=== PATIENT | female | born 1980 | race Caucasian/White ===

== ENCOUNTER 2016-08-01 09:42 | Emergency (ER) | payer OTHER ==
[~2016-08-01] VITALS: Ht 160 cm; Wt 61.9 kg
[~2016-08-01 09:42] MED LIST: CLON1TAB3 PO; INSUINJ12 SC; INSUINJ14 SC; TRAM-10 PO
[2016-08-01 09:45] VITALS: BP 110/73; PULSE 86; TEMP 36.7; O2SAT 98; Ht 160 cm; Wt 61.9 kg
[2016-08-01] MEDS ORDERED: SODIUM CHLORIDE 0.9% 1000ML 1,000 ML IV SCH (10:00)
[2016-08-01] MEDS ORDERED: ONDANSETRON INJ 2 MG/ML 2 ML VIAL IV STA (10:00)
--- NOTE | 2016-08-01 10:28 | EMERGENCY ROOM VISIT NOTE ---
ED Visit Note First contact with patient: 09:49 This patient was seen by the resident but signed out AMA prior to the residents complete evaluation. Please see his note for information. I did not see the patient as she was not willing to wait to be seen and refused any blood work other than her initial BSG that was better than her one at home.
--- NOTE | 2016-08-01 10:48 | EMERGENCY ROOM VISIT NOTE ---
History First contact with patient: 09:49 Chief Complaint: HYPERGLYCEMIA Stated Complaint: HIGH SUGAR Nursing Triage Summary: Murray denies recent use of steroids, stated last meal was at 2100 last evening. Morning BSG typically around 200. Patient woke up in the middle of the night, patient checked BSG in middle of night and stated it was 591. Patient states "My stomach is upset." History of Present Illness The patient is a 36 year old female who presents to the Emergency Room with complaints of elevated BSG. She woke up this morning feeling unwell. Check her BSG it was 590. She took 30 units of Levemir and 10 units of Novolog. She called her mother to bring her in to the hospital. Mother feels that Jena sounded confused on the phone. Patient currently complains of mild abdominal pain and nausea without vomiting. She denies diarrhea or constipation. No fevers, chills or nightsweats. She denies urinary symptoms. No respiratory symptoms. Patient denies any recent illness or medication changes. She has not been on any steroids recently. She just moved back to [place] from [place]. Mother notes that she has been in the hospital multiple times for elevated blood sugars, uncertain when her last episode of DKA was, when she was in [place]. Jena, notes that her HbA1c is 9.0%, 1 month ago. Jena states that she does not want to stay here, says her BSGs are starting to come down and wants to continue recovery at home without further work-up. Past Medical/Surgical History Medical Problems: (1) Depression (2) Diabetes Family History Maternal lineage has extensive history of hypothyroidism and type 2 diabetes. Social History Smoking Status: Current Every Day Smoker (20 pack year) Smokeless Tobacco Use: No Alcohol Use: none Marital Status: single Housing Status: lives with family (aunt in [place]) Occupation Status: unemployed Current/Historical Medications Scheduled Clonazepam (Klonopin), 1 MG PO BID Insulin Aspart Penfill (Novolog Penfill), 1 DOSE SC AC Insulin Detmir (Levemir), 30 UNITS SC QAM Scheduled PRN Tramadol (Ultram), 1-2 TAB PO Q6 PRN for Pain Allergies Coded Allergies: Acetaminophen (Verified Allergy, Unknown, rash and swellimg of mouth, ) Physical Exam Vital Signs Date Time Temp Pulse Resp B/P Pulse Ox O2 Delivery O2 Flow Rate FiO2 08/01/16 09:45 36.7 86 18 110/73 98 Room Air Physical Exam Constitutional: Vital signs as above were reviewed. Patient appears to be in mild distress. Unwell appearing Eyes: Pupils equal, round, and reactive to light. Extraocular muscles are intact. No proptosis. No photophobia. ENT: Mucous membranes are moist. Oropharynx is clear. No sinus tenderness. TMs are clear bilaterally. Cardiovascular: Heart with a regular rate and rhythm. Pulses are palpable and symmetric in all 4 extremities. No pedal edema appreciated. Respiratory: Lungs clear to auscultation bilaterally. No wheezes, rales, or rhonchi appreciated. No accessory muscle use. No retractions. No increased work of breathing. GI: Abdomen soft, nontender, nondistended. Normal active bowel sounds. No abdominal hernias appreciated. No rebound. No guarding. : No CVA tenderness appreciated. Musculoskeletal: No midline cervical or vertebral tenderness. No gross deformities. No bony tenderness. No calf swelling or tenderness. Integumentary: Warm, dry, no rashes appreciated. Neurological: Patient awake, alert, and oriented x 3. Cranial nerves two through 12 grossly intact. Motor 5 out of 5 strength bilateral upper and lower extremities. Lymph: No cervical lymphadenopathy appreciated. Medical Decision & Procedures Laboratory Results Test 08/01/16 09:51 08/01/16 10:00 Bedside Glucose 453 mg/dl (70-90) ED Course 09:50 - Patient seen: history taken, examination performed BSG 459 and 453 respectively Labs ordered: CBC, BMP, Mg, Phos, VBG, beta-hydroxybutyrate Urinalysis 1 L NSS bolus; continue bolusing until otherwise ordered 4 mg Zofran one IV 10:00 - Patient refusing IV insertion, refusing lab collection, refusing to receive IV fluids Patient starts to walk out of room despite advisement of significant risks of harm is discharged Patient able to verbalize that she is at risk of worsening if discharged. 10:20 - AMA form signed; advised to return immediately if blood sugars do not improve or symptoms worsen Discussed with patients mother; advised to continue hourly BSG monitoring and push PO fluids aggressively 10:25 - Patient discharged against medical advice in fair condition. Medical Decision Patient was seen, history obtained, full examination done and EMR reviewed. Patient appears to be an uncontrolled type 1 diabetic. On arrival, accuchecks show BSG 453, seeming to come down from BSG 590 prior to arrival. Unfortunately, further assessment could not be done as patient was refusing IV access and lab draws. Patient also adamant about leaving. Does not want to be evaluate or admitted. Feels that her BSGs are coming down. I advised her of the BENEFITS OF STAYING IN THE ED for work-up, specifically: aggressive IV rehydration, lab work-up and if needed IV insulin to rapidly bring down blood sugars She is aware of the RISKS OF REFUSING further work-up, most importantly the inability to diagnose severe electrolyte abnormalities. Specifically risk of refusing work-up and leaving ED include: - No treatment of hyperglycemia or electrolyte abnormalities - No treatment for acidosis - Metabolic deterioration secondary to acidosis - of above remain untreated. Patient signed AMA form. I spent time with mother advising her to check BSGs hourly and push oral fluids aggressively and return immediately if patient condition continues to deteriorate. Mother agreeable and will make all efforts to do so. Impression Primary Impression: Hyperglycemia Additional Impression: Diabetes Departure Information Dispostion Against Medical Advice (form signed) Condition FAIR Referrals No Doctor, Assigned (PCP) Patient Instructions My [facility] Problem Qualifiers
== END 2016-08-01 10:17 | disposition left against medical advice (07) ==
LOC: C.EDB 09:43
DX: E11.65 Type 2 diabetes mellitus with hyperglycemia (principal); F32.9 Major depressive disorder, single episode, unspecified; Z83.3 Family history of diabetes mellitus; F17.210 Nicotine dependence, cigarettes, uncomplicated; Z79.4 Long term (current) use of insulin; Z79.899 Other long term (current) drug therapy

== ENCOUNTER 2016-10-28 07:10 | Emergency (ER) | payer OTHER ==
[~2016-10-28] VITALS: Ht 157.5 cm; Wt 63.0 kg
[2016-10-28 07:17] VITALS: BP 133/86; PULSE 87; TEMP 36.3; O2SAT 98; Ht 157.5 cm; Wt 63.0 kg
--- NOTE | 2016-10-28 07:33 | EMERGENCY ROOM VISIT NOTE ---
History Report prepared by Wilver: Kesha Triana Under the Supervision of: Dr. Eris Kline M.D. First contact with patient: 07:19 Chief Complaint: MENTAL HEALTH EVALUATION Stated Complaint: NEED TO TALK TO SOMEONE History of Present Illness The patient is a 36 year old female who presents to the Emergency Room with complaints of persistent depression over the past month. She has a history of depression but is not on any medications. She does not follow up with a psychiatrist or counselor. She denies suicidal thoughts or any plans to hurt herself. The patient does not currently have a job and states that she has difficulty having jobs. She denies that financial issues contribute to her depression. She denies drug use.The patient denies chance of . Her last menstrual period was 3 weeks ago. History is limited secondary to poor cooperation. The patient states, "I don't want to answer question after question." Source of History: patient History Limited By: other (poor cooperation) Onset: 1 month ago Position: other (psychiatric) Quality: other (depression) Timing: other (persistent) Review of Systems See HPI for pertinent positives & negatives. A total of 10 systems reviewed and were otherwise negative. Past Medical & Surgical Medical Problems: (1) Depression (2) Diabetes Family History Hypertension Social History Smoking Status: Current Every Day Smoker Alcohol Use: none Marital Status: single Housing Status: lives with family Occupation Status: unemployed Current/Historical Medications Scheduled Clonazepam (Klonopin), 1 MG PO BID Insulin Aspart Penfill (Novolog Penfill), 1 DOSE SC AC Insulin Detmir (Levemir), 30 UNITS SC QAM Allergies Coded Allergies: Acetaminophen (Verified Allergy, Unknown, rash and swellimg of mouth, 10/28) Physical Exam Vital Signs Date Time Temp Pulse Resp B/P Pulse Ox O2 Delivery O2 Flow Rate FiO2 10/28/16 07:17 36.3 87 18 133/86 98 Room Air Physical Exam Patient refused physical exam. Medical Decision & Procedures Laboratory Results Test 10/28/16 07:19 ED Course 0725: The patient was evaluated in room A6. She was not cooperative in answering questions or changing into a hospital gown, as asked. She refused a physical examination and eloped from the emergency room. Medical Decision Differential diagnosis: Etiologies such as mood disorder, infection, hypoglycemia, electrolyte abnormalities, cardiac sources, intracerebral event, toxicologic, neurologic, as well as others were entertained. This is a 36-year-old female who presents to the emergency department asking to talk to somebody. The patient denies suicidal or homicidal ideation. The patient refused to talk to nursing staff and refused to follow their requests. When I began talking to her she stated she did not wish to answer question after question. I strongly recommended that if the patient wished to talk to somebody that she change into a dressing gown, however the patient refused. She is refusing to cooperate and at this point wishes to leave. She has reiterated that she is not suicidal or homicidal I see no reason to keep this patient here against her will. The patient was seen in conjunction with case management however the patient refused to answer any further question. I even offered to feed the patient as she expressed that she was hungry however she reiterated that she wasn't staying and was leaving. The patient has demonstrated no significant defect in the decision-making capacity to make choices. The encounter had a good level of communication with language the patient can easily understand. I feel trust was present and conveyed that our action/intentions were the best interest of the patient. The patient was given all relevant information and reiterated the explained risks and benefits. The patient explained the reasoning for refusing treatment clearly. The patient possesses and expresses a set of values and goals, the ability to communicate and understand, and an ability to reason and deliberate. Despite acting emphatically, attentively and with the utmost patient's the patient declined further treatment. I offered options, negotiated, and explored every reasonable choice. I must respect the patient's autonomy and that they feel that their choices are best for them despite the associated risks of leaving without completing the evaluation. The patient was informed about the findings as listed above. All questions were answered and he was pleased with the treatment. Return instructions were outlined and the patient was discharged in stable condition. Impression Primary Impression: Mood disorder Scribe Attestation The scribe's documentation has been prepared under my direction and personally reviewed by me in its entirety. I confirm that the note above accurately reflects all work, treatment, procedures, and medical decision making performed by me. Departure Information Dispostion Other (Eloped) Referrals No Doctor, Assigned (PCP) Patient Instructions My [facility]
== END 2016-10-28 07:35 | disposition home or self-care (01) ==
LOC: C.EDB 07:11 → C.EDA 07:35
DX: F39 Unspecified mood [affective] disorder (principal); F32.9 Major depressive disorder, single episode, unspecified; E11.9 Type 2 diabetes mellitus without complications; F17.200 Nicotine dependence, unspecified, uncomplicated; Z79.899 Other long term (current) drug therapy; Z88.6 Allergy status to analgesic agent; Z82.49 Family history of ischemic heart disease and other diseases of the circulatory system

== ENCOUNTER 2016-11-24 03:37 | Emergency (ER) | payer OTHER ==
[~2016-11-24] VITALS: Ht 157.5 cm; Wt 65.2 kg
[~2016-11-24 03:37] MED LIST changes: -TRAM-10 PO
[2016-11-24 03:40] VITALS: TEMP 36.7; Ht 157.5 cm; Wt 65.2 kg
[2016-11-24] MEDS ORDERED: AMOXICILLIN 250 MG CAP PO STA (03:52)
[2016-11-24] MEDS ORDERED: KETOROLAC TROMETHAMINE 60 MG/2 ML VIAL IM STA (03:52)
[2016-11-24] MEDS ORDERED: AMOX500C3 PO (03:55)
[2016-11-24] MEDS ORDERED: TRAMADOL HCL 50 MG HOME PACK PO ONE (04:00)
--- NOTE | 2016-11-24 04:00 | EMERGENCY ROOM VISIT NOTE ---
History First contact with patient: 03:47 Chief Complaint: DENTAL PAIN Stated Complaint: DRY SOCKET Nursing Triage Summary: pt states "I had a tooth pulled 1 week ago and have dry socket. I went to the walk in clinic and they gave me a prescription but I couldn't get it filled yet. It just hurts non stop." History of Present Illness The patient is a 36 year old female who presents to the Emergency Room with complaints of dental pain for the past day after she got her lower central incisor extracted and the dentist yesterday. Patient with urgent care last night and was given T3 but was unable to fill it. She comes in now for pain management. She describes the pain as throbbing, 8 out of 10. Nothing makes it better or worse. She tried Tylenol and Motrin symptoms. She tried Orajel. Patient denies chest pain, dyspnea, fever, chills, cough, congestion, dysphagia , sore throat, neck stiffness. She has a follow-up appointment this week with a dentist. Review of Systems See HPI for pertinent positives & negatives. A total of 10 systems reviewed and were otherwise negative. Past Medical/Surgical History Medical Problems: (1) Depression (2) Diabetes Family History Hypertension Social History Smoking Status: Current Every Day Smoker Alcohol Use: none Marital Status: single Housing Status: lives with family Occupation Status: unemployed Current/Historical Medications Scheduled Amoxicillin (Amoxil), 500 MG PO TID Clonazepam (Klonopin), 1 MG PO BID Insulin Aspart Penfill (Novolog Penfill), 1 DOSE SC AC Insulin Detmir (Levemir), 30 UNITS SC QAM Allergies Coded Allergies: Acetaminophen (Verified Allergy, Unknown, rash and swellimg of mouth, 11/24) Physical Exam Vital Signs Date Time Temp Pulse Resp B/P Pulse Ox O2 Delivery O2 Flow Rate FiO2 11/24/16 03:40 36.7 78 20 117/73 98 Room Air Physical Exam VITALS: Vitals are noted on the nurse's note and reviewed by myself. Vital signs stable. GENERAL: Pleasant female, in no acute distress, nondiaphoretic, well-developed well-nourished. SKIN: The skin was without rashes, erythema, edema, or bruising. There is no tenting of the skin. Capillary reflex less than 2 seconds. HEAD: Normocephalic atraumatic. EARS: External auditory canals clear, tympanic membranes pearly mora without erythema or effusion bilaterally. EYES: Pupils equal round and reactive to light and accommodation. Conjunctivae without injection, sclerae without icterus. Extraocular movements intact. NOSE: Patent, turbinates without inflammation or discharge. No sinus tenderness. MOUTH: Mucous membranes moist. Pharynx without erythema or exudate. Uvula midline. Airway patent. Tongue does not deviate. Dental exam: Lower central incisor extracted with no signs of dry socket or palpable abscess. Overall dental hygiene fair. No Tyler angina. NECK: Supple without nuchal rigidity. No lymphadenopathy. No thyromegaly. Cervical spine is nontender. No JVD. HEART: Regular rate and rhythm without murmurs gallops or rubs. LUNGS: Clear to auscultation bilaterally without wheezes, rales or rhonchi. No dullness to percussion. No retractions or accessory muscle use. ABDOMEN: Positive bowel sounds x 4. Normal tympanic percussion. Soft, nontender, without masses or organomegaly. Cooper sign negative. No guarding or rebound tenderness. MUSCULOSKELETAL: No muscle atrophy, erythema, or edema noted. NEURO: Patient was alert and oriented to person place and time. Normal sensation to light and sharp touch. No focal neurological deficits. Medical Decision & Procedures ED Course Prior records reviewed and summarized as above. Triage Nursing notes reviewed. The patient's history was concerning for dental pain. Differential diagnosis: Etiologies such as cellulitis, abscess, dry socket, Tyler angina, gingivitis, as well as others were entertained.. Physical examination: The physical examination was consistent with dental pain from recent dental extraction ER treatment provided: Amoxicillin, Toradol On reassessment the patient felt better. Diagnostics interpreted by me: Deferred This appears to be isolated dental pain. Patient had no palpable abscess. No signs of dry socket. No signs of Tyler angina or airway compromise. She has a prescription of T3 at the pharmacy but could not fill it. She is given a shot of Toradol and advised to take her medicines as prescribed from her other provider. She is advised follow-up with her dentist in a few days or here in the ER sooner for fevers, facial swelling, high sugars, worsening signs or symptoms or as needed.. By the evaluation outlined above emergent etiologies such as abscess, Tyler angina, as well as others were deemed relatively unlikely. The pt informed about the findings as listed above. All questions were answered and pleased with the treatment. Return instructions were outlined and the patient was discharged in stable condition. Outpatient prescription management: Amoxicillin Referral: The patient was referred back to dentist and/or primary care physician for follow-up in 2 to 3 days for a recheck of the current condition. Medical Decision As above Impression Primary Impression: Tooth pain with chewing Departure Information Dispostion Home / Self-Care Condition GOOD Prescriptions Amoxicillin (AMOXIL) 500 Mg Cap 500 MG PO TID, #30 CAP Prov: Zenaida Gallardo .RACHAEL 11/24/16 Referrals No Doctor, Assigned (PCP) Forms HOME CARE DOCUMENTATION FORM, IMPORTANT VISIT INFORMATION Patient Instructions Visit Dental, [facility] Additional Instructions Amoxicillin 500mg: Take one pill 3 times daily for 10 days for your infection. All antibiotics can cause diarrhea. If this occurs and you feel worse or it does not resolve in 1-2 days follow up with your doctor or return to the Emergency Department as this could be signs of serious underlying problems. Any medication can cause an allergic reaction, stop the pills immediately and return to the ER for rash, hives, breathing difficulties, or swelling. Ultram 50 mg: Take 1-2 pills every four hours for breakthrough pain. Avoid alcohol, operating machinery or dangerous equipment, working on ladders or roofs , DRIVING, or situations where being under the influence may be dangerous. It is recommended to use an warz-lbc-txummat stool softener such as Colace, 100mg twice daily while taking this medication to avoid constipation. Ibuprofen(Motrin, Advil) may be used for fever or pain. Use 600mg every six hours as needed. Take with food. Avoid using more than 2400mg in a 24 hour period. Do not use 2400mg per day for more than three consecutive days without physician direction. Prolonged inappropriate use can lead to stomach upset or ulcers. This medication can be taken if you need to drive, work, or perform activities which may be dangerous when taking narcotic pain medication. (AND/OR) Acetaminophen(Tylenol) may be used for fever or pain. Use 1000mg every six hours as needed. Avoid using more than 3000mg in a 24 hour period. This medication can be taken if you need to drive, work, or perform activities which may be dangerous when taking narcotic pain medication. [place] teeth twice a day, floss daily and do warm saltwater gargles 3 times a day. See a dentist as soon as possible for definitive care for your dental problem. Return to ER sooner for facial swelling, fever, redness, worsening signs or symptoms or as needed.
--- NOTE | 2016-11-24 04:05 | EMERGENCY ROOM VISIT NOTE ---
ED Visit Note First contact with patient: 03:47 36-year-old female recent dental extraction lower molar complaints of pain. Patient was prescribed pain medicine at the pharmacy however she's not on antibiotics. Patient states jaw pain however she is able to open her mouth without difficulty. I agree with the physician assistants workup there is no evidence of a dental abscess at this time. Problem List Medical Problems: (1) Depression Status: Chronic (2) Diabetes Status: Chronic Current/Historical Medications Scheduled Amoxicillin (Amoxil), 500 MG PO TID Clonazepam (Klonopin), 1 MG PO BID Insulin Aspart Penfill (Novolog Penfill), 1 DOSE SC AC Insulin Detmir (Levemir), 30 UNITS SC QAM Allergies Coded Allergies: Acetaminophen (Verified Allergy, Unknown, rash and swellimg of mouth, 11/24) Vital Signs Date Time Temp Pulse Resp B/P Pulse Ox O2 Delivery O2 Flow Rate FiO2 11/24/16 03:40 36.7 78 20 117/73 98 Room Air Medications Administered Medications (Trade) Dose Ordered Sig/Kylee Route Start Time Stop Time Status Last Admin Dose Admin Ketorolac Tromethamine (Toradol Inj) 60 mg NOW STAT IM 11/24/16 03:52 11/24/16 03:54 DC 11/24/16 03:59 60 MG Amoxicillin (Amoxil Cap) 500 mg NOW STAT PO 11/24/16 03:52 11/24/16 03:54 DC 11/24/16 03:58 500 MG Tramadol HCl (Ultram Home Pack) 1 homepack UD ONCE PO 11/24/16 04:00 11/24/16 04:01 DC 11/24/16 04:01 1 HOMEPACK Departure Information Impression Primary Impression: Tooth pain with chewing Dispostion Home / Self-Care Condition GOOD Prescriptions Amoxicillin (AMOXIL) 500 Mg Cap 500 MG PO TID, #30 CAP Prov: Zenaida Gallardo PA-C 11/24/16 Referrals No Doctor, Assigned (PCP) Forms HOME CARE DOCUMENTATION FORM, IMPORTANT VISIT INFORMATION Patient Instructions Visit Dental, [facility] Additional Instructions Amoxicillin 500mg: Take one pill 3 times daily for 10 days for your infection. All antibiotics can cause diarrhea. If this occurs and you feel worse or it does not resolve in 1-2 days follow up with your doctor or return to the Emergency Department as this could be signs of serious underlying problems. Any medication can cause an allergic reaction, stop the pills immediately and return to the ER for rash, hives, breathing difficulties, or swelling. Ultram 50 mg: Take 1-2 pills every four hours for breakthrough pain. Avoid alcohol, operating machinery or dangerous equipment, working on ladders or roofs , DRIVING, or situations where being under the influence may be dangerous. It is recommended to use an lrnc-bhi-mgkshsp stool softener such as Colace, 100mg twice daily while taking this medication to avoid constipation. Ibuprofen(Motrin, Advil) may be used for fever or pain. Use 600mg every six hours as needed. Take with food. Avoid using more than 2400mg in a 24 hour period. Do not use 2400mg per day for more than three consecutive days without physician direction. Prolonged inappropriate use can lead to stomach upset or ulcers. This medication can be taken if you need to drive, work, or perform activities which may be dangerous when taking narcotic pain medication. (AND/OR) Acetaminophen(Tylenol) may be used for fever or pain. Use 1000mg every six hours as needed. Avoid using more than 3000mg in a 24 hour period. This medication can be taken if you need to drive, work, or perform activities which may be dangerous when taking narcotic pain medication. [place] teeth twice a day, floss daily and do warm saltwater gargles 3 times a day. See a dentist as soon as possible for definitive care for your dental problem. Return to ER sooner for facial swelling, fever, redness, worsening signs or symptoms or as needed.
[2016-11-24 04:17] VITALS: BP 127/79; PULSE 75; O2SAT 100
== END 2016-11-24 04:17 | disposition home or self-care (01) ==
LOC: C.EDB 03:38 → C.EDA 04:17
DX: K08.89 Other specified disorders of teeth and supporting structures (principal); E11.9 Type 2 diabetes mellitus without complications; F32.9 Major depressive disorder, single episode, unspecified; Z82.49 Family history of ischemic heart disease and other diseases of the circulatory system; F17.200 Nicotine dependence, unspecified, uncomplicated; Z79.4 Long term (current) use of insulin; Z79.899 Other long term (current) drug therapy